=== PATIENT | female | born 1975 | race Asian ===

== ENCOUNTER 2018-11-25 02:17 | Emergency (ER) | payer OTHER ==
[~2018-11-25] VITALS: Ht 167.6 cm; Wt 54.4 kg
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
--- NOTE | 2018-11-25 03:01 | NUR ---
[employer] AT BEDSIDE TALKING TO PT.
--- NOTE | 2018-11-25 03:37 | NUR ---
PT TRANSPORTED TO RADIOLOGY FOR CT'S AND XRAY'S
--- NOTE | 2018-11-25 04:00 | NUR ---
PT BACK FROM RADIOLOGY. PENDING CT RESULTS.
[2018-11-25] MEDS ORDERED: ONDANSETRON 4 MG TAB.RAPDIS SL ONE (06:00)
[2018-11-25] MEDS ORDERED: HYDROCODONE/APAP 5/325MG 1 EACH TABLET PO ONE (06:00)
[2018-11-25] MEDS ORDERED: ONDANSETRON 4 MG TAB.RAPDIS ONE (06:02)
[2018-11-25] MEDS ORDERED: HYDROCODONE/APAP 5/325MG 1 EACH TABLET ONE (06:02)
[2018-11-25 06:10] VITALS: BP 127/69
--- NOTE | 2018-11-25 06:11 | NUR ---
Patient discharged to home in stable condition. Written and verbal after care instructions given. Patient verbalizes understanding of instruction. ambulatory with a steady gait noted. pt aaox4 no acute distress noted, resp even and unlabored. advice pt not to drive or operate any machinery due to pt was given narcotic medicine. pt verbalize understanding.
== END 2018-11-25 06:24 | disposition home or self-care (01) ==
LOC: ER 02:19
DX: S06.0X0A Concussion without loss of consciousness, initial encounter (principal); M54.2 Cervicalgia; M54.5 Low back pain; Y08.89XA Assault by other specified means, initial encounter; Y93.89 Activity, other specified; Y92.89 Other specified places as the place of occurrence of the external cause; Y99.8 Other external cause status
CPT/HCPCS: 36415; 70450; 71045; 72070; 72110; 72125; 84702; 99284; Q0162

== ENCOUNTER 2020-04-17 15:55 | Emergency (ER) | payer OTHER ==
[~2020-04-17] VITALS: Ht 170.2 cm; Wt 54.4 kg
[2020-04-17 16:41] VITALS: BP 99/62
--- NOTE | 2020-04-17 16:41 | NUR ---
Patient discharged to home in stable condition. Written and verbal after care instructions given. Patient verbalizes understanding of instruction.
== END 2020-04-17 16:42 | disposition home or self-care (01) ==
LOC: ER 15:55
DX: R51 Headache (principal); G89.29 Other chronic pain; L50.8 Other urticaria

== ENCOUNTER 2021-05-07 11:31 | Emergency (ER) | payer OTHER ==
[~2021-05-07] VITALS: Ht 170.2 cm; Wt 57.2 kg
--- NOTE | 2021-05-07 11:32 | NUR ---
called to triage,no answer
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
--- NOTE | 2021-05-07 12:20 | NUR ---
UNABLE TO GIVE URINE AT THIS TIME
[2021-05-07] MEDS ORDERED: KETOROLAC TROMETHAMINE INJ 30 MG/ML VIAL IV ONE (12:30)
[2021-05-07] MEDS ORDERED: IV NS 0.9% 1,000 ML BAG IV ONE (12:30)
[2021-05-07 13:05] LABS: CALCIUM, SERUM 8.9 mg/dL (8.5-10.1); CARBON DIOXIDE 28 mmol/L (21-32); CHLORIDE 104 mmol/L (98-107); CREATININE 0.7 mg/dL (0.6-1.3); GLUCOSE 91 mg/dL (74-106); POTASSIUM 4.3 mmol/L (3.5-5.1); SODIUM SERUM 141 mmol/L (136-145); UREA NITROGEN, BLOOD 7 mg/dL (7-18)
[2021-05-07 13:07] LABS: BASOPHILS % (AUTO) 0.8 % (0.0-2.0); EOSINOPHILS % (AUTO) 0.5 % (0.0-6.0); HEMATOCRIT 39 % (33-45); HEMOGLOBIN 12.9 g/dL (11.5-14.8); LYMPHOCYTES # (AUTO) 1.4 K/uL (0.8-4.8); LYMPHOCYTES % (AUTO) 35.8 % (20.0-44.0); MEAN CORPUSCULAR HGB CONC 33 g/dl (31.0-36.0); MEAN CORPUSCULAR VOLUME 95 fL (82-100); MONOCYTES # (AUTO) 0.4 K/uL (0.1-1.30); MONOCYTES % (AUTO) 10.1 % (2.0-12.0); NEUTROPHILS # (AUTO) 2.1 K/uL (1.8-8.9); NEUTROPHILS % (AUTO) 52.8 % (43.0-81.0); PLATELET COUNT (AUTO) 248 K/uL (150-450); RED BLOOD CELL COUNT(AUTO) 4.14 MIL/uL (4.0-5.2)
[2021-05-07 13:11] LABS: ALANINE AMINOTRANSFERASE 17 U/L (12-78); ALBUMIN 3.8 g/dL (3.4-5.0); ALKALINE PHOSPHATASE 52 U/L (46-116); ASPARTATE AMINOTRANSFERASE 15 U/L (15-37); BILIRUBIN,DIRECT 0.1 mg/dL (0.0-0.2); BILIRUBIN,TOTAL 0.4 mg/dL (0.2-1.0); LIPASE 86 U/L (73-393); TOTAL PROTEIN, SERUM 7.9 g/dL (6.4-8.2)
[2021-05-07] MEDS ORDERED: IV NS 0.9% 250 ML IV ONE (13:50)
[2021-05-07] MEDS ORDERED: IOHEXOL-300 100 ML VIAL IV ONE (13:50)
--- NOTE | 2021-05-07 14:26 | NUR ---
URINE COLLECTED AND SENT TO LAB
[2021-05-07] MEDS ORDERED: IBUP-1955 PO (15:04)
[2021-05-07 15:13] LABS: BILIRUBIN,URINE NEGATIVE (NEGATIVE); COLOR,URINE YELLOW (YELLOW); LEUKOCYTE ESTERASE ,URINE NEGATIVE (NEGATIVE); NITRITE, URINE NEGATIVE (NEGATIVE); PROTEIN,URINE NEGATIVE (NEGATIVE); UGLUCOSE NEGATIVE (NEGATIVE); UROBILINOGEN,URINE 0.2 EU/dL (0.2)
[2021-05-07 15:20] LABS: BACTERIA,URINE Moderate /HPF (None Seen); SQUAMOUS EPITHELIAL CELL,UR Few /HPF (None Seen); WBC,URINE 0-2 /HPF (0-3)
[2021-05-07] MEDS ORDERED: KETOROLAC TROMETHAMINE 15 MG/ML VIAL ONE (15:38)
--- NOTE | 2021-05-07 17:05 | NUR ---
IV removed. Catheter intact and site benign. Pressure and 4x4 applied to site. No bleeding noted.
--- NOTE | 2021-05-07 17:05 | NUR ---
Patient discharged to home in stable condition. Written and verbal after care instructions given. Patient verbalizes understanding of instruction.
[2021-05-07 17:06] VITALS: BP 119/76
== END 2021-05-07 17:06 | disposition home or self-care (01) ==
LOC: ER 11:36
DX: D25.9 Leiomyoma of uterus, unspecified (principal); R10.32 Left lower quadrant pain
CPT/HCPCS: 36415; 74177; 80048; 80076; 81001; 83605; 83690; 84484; 84703; 85025; 85730; 87086; 96361; 96374; 99285; J1885; J7030; J7050; Q9967